=== PATIENT | male | born 1960 | race Caucasian/White ===

== ENCOUNTER 2018-07-18 20:35 | Emergency (ER) | payer OTHER ==
[~2018-07-18] VITALS: Ht 177.8 cm; Wt 144.2 kg
[2018-07-18] MEDS ORDERED: NORCO 5-325 TA1 EACH PO (20:59)
[2018-07-18] MEDS ORDERED: IBUPROFEN600 MG PO (21:00)
== END 2018-07-18 21:10 | disposition home or self-care (01) ==
LOC: ED 20:35
DX: S02.5XXA Fracture of tooth (traumatic), initial encounter for closed fracture (principal); X58.XXXA Exposure to other specified factors, initial encounter; Y93.89 Activity, other specified; Y92.89 Other specified places as the place of occurrence of the external cause; Y99.9 Unspecified external cause status

== ENCOUNTER → 2021-03-31 | Outpatient (CLI) | payer OTHER ==
[~2021-03-31] MED LIST: IBUPROFEN600 MG PO; NORCO 5-325 TA1 EACH PO
== END | disposition home or self-care (01) ==
LOC: US 10:36
PROVIDERS: ATTEND Nurse Practitioner Family
DX: I73.9 Peripheral vascular disease, unspecified (principal)

== ENCOUNTER → 2021-07-21 | Outpatient (CLI) | payer OTHER | END | disposition home or self-care (01) | LOC: US 14:00 | PROVIDERS: ATTEND Nurse Practitioner Family | DX: I82.413 Acute embolism and thrombosis of femoral vein, bilateral (principal); I82.432 Acute embolism and thrombosis of left popliteal vein ==

== ENCOUNTER 2021-11-29 13:07 | Emergency (ER) | payer OTHER ==
[2021-11-29 14:16] LABS: BASO % 0.4 % (0.0-1.0); EOS # 0.1 10*3/uL (0.0-0.4); EOS % 1.3 % (1.0-4.0); HEMATOCRIT 42.1 % (42.0-52.0); LYMPH # 1.6 10*3/uL (1.3-4.4); LYMPH % 22.4 % (27.0-41.0); MEAN CELL VOLUME 88.1 fl (80.0-94.0); MEAN CORPUSCULAR HGB 28.5 pg (27.0-31.0); MEAN CORPUSCULAR HGB CONC 32.3 g/dl (33.0-37.0); MEAN PLATELET VOLUME 9.7 fl (9.6-12.3); MONO # 0.7 10*3/uL (0.1-1.0); MONO % 9.4 % (3.0-9.0); NEUT # 4.7 10*3/uL (2.3-7.9); NEUT % 65.9 % (47.0-73.0); PLATELET COUNT AUTOMATED 220 10*3/uL (130-400); RED BLOOD COUNT 4.78 10*6/uL (4.50-5.90); RED CELL DISTRI WIDTH 16.2 % (0-14.5); WHITE BLOOD COUNT 7.1 10*3/uL (4.8-10.8)
[2021-11-29 14:31] LABS: BUN 14 mg/dl (7-24); CHLORIDE 110 mmol/L (98-107); CREATININE 0.78 mg/dL (0.70-1.30); POTASSIUM 3.9 mmol/L (3.5-5.1); SODIUM 145 mmol/L (136-145)
[2021-11-29 14:33] LABS: ACT PARTIAL THROMBO TIME 37.3 SECONDS (20.0-32.1)
== END 2021-11-29 14:47 | disposition home or self-care (01) ==
LOC: ED 13:07
PROVIDERS: Emergency Medicine
DX: I82.501 Chronic embolism and thrombosis of unspecified deep veins of right lower extremity (principal); Z91.040 Latex allergy status

== ENCOUNTER → 2024-07-10 | Outpatient (CLI) | payer OTHER | END | disposition home or self-care (01) | LOC: US 09:38 | PROVIDERS: ATTEND Urology | DX: N28.1 Cyst of kidney, acquired (principal); N50.3 Cyst of epididymis; N43.2 Other hydrocele; N20.0 Calculus of kidney; N50.819 Testicular pain, unspecified ==

== ENCOUNTER → 2024-09-02 | Outpatient (CLI) | payer OTHER ==
[2024-09-02 12:56] LABS: BASO % 0.5 % (0.0-1.0); EOS # 0.1 10*3/uL (0.0-0.4); EOS % 1.3 % (1.0-4.0); HEMATOCRIT 43.3 % (42.0-52.0); MEAN CELL VOLUME 85.9 fl (80.0-94.0); MEAN CORPUSCULAR HGB 26.4 pg (27.0-31.0); MEAN CORPUSCULAR HGB CONC 30.7 g/dl (33.0-37.0); MEAN PLATELET VOLUME 9.7 fl (9.6-12.3); MONO # 0.8 10*3/uL (0.1-1.0); MONO % 8.8 % (3.0-9.0); NEUT % 68.1 % (47.0-73.0); PLATELET COUNT AUTOMATED 244 10*3/uL (130-400); RED BLOOD COUNT 5.04 10*6/uL (4.50-5.90); RED CELL DISTRI WIDTH 17.3 % (0-14.5); WHITE BLOOD COUNT 8.7 10*3/uL (4.8-10.8)
[2024-09-02 13:17] LABS: ALKALINE PHOSPHATASE 115 U/L (46-116); BUN 13 mg/dl (9-23); CHLORIDE 102 mmol/L (98-107); POTASSIUM 3.8 mmol/L (3.4-5.1); SGPT/ALT 19 U/L (5-49); TOTAL PROTEIN 6.8 gm/dL (6.0-8.0)
== END | disposition home or self-care (01) ==
LOC: LAB 12:18
PROVIDERS: ATTEND Urology
DX: Z12.5 Encounter for screening for malignant neoplasm of prostate (principal); D40.0 Neoplasm of uncertain behavior of prostate; R53.83 Other fatigue

== ENCOUNTER → 2024-09-12 | Outpatient (CLI) | payer OTHER | END | disposition home or self-care (01) | LOC: CT 02:12 | PROVIDERS: ATTEND Internal Medicine | DX: R91.8 Other nonspecific abnormal finding of lung field (principal); J98.4 Other disorders of lung; I51.7 Cardiomegaly; I25.10 Atherosclerotic heart disease of native coronary artery without angina pectoris; R04.2 Hemoptysis ==

== ENCOUNTER → 2024-12-10 | Outpatient (CLI) | payer OTHER ==
[2024-12-10 15:32] LABS: BASO # 0.0 10*3/uL (0.0-0.1); BASO % 0.5 % (0.0-1.0); EOS # 0.2 10*3/uL (0.0-0.4); EOS % 1.7 % (1.0-4.0); MEAN CELL VOLUME 80.6 fl (80.0-94.0); MEAN CORPUSCULAR HGB 24.7 pg (27.0-31.0); MEAN PLATELET VOLUME 8.9 fl (9.6-12.3); MONO # 0.7 10*3/uL (0.1-1.0); MONO % 7.8 % (3.0-9.0); NEUT # 6.1 10*3/uL (2.3-7.9); NEUT % 69.2 % (47.0-73.0); NUCLEATED RED BLOOD CELL 0.0 % (0.0-0.0); NUCLEATED RED BLOOD CELL 0.0 10*3/uL (0.0-0.0); PLATELET COUNT AUTOMATED 217 10*3/uL (130-400); RED CELL DISTRI WIDTH 18.0 % (0-14.5)
[2024-12-10 16:13] LABS: BUN 17 mg/dl (9-23); SGPT/ALT 25 U/L (5-49)
== END | disposition home or self-care (01) ==
LOC: LAB 15:13
PROVIDERS: ATTEND Nurse Practitioner
DX: Z12.5 Encounter for screening for malignant neoplasm of prostate (principal); E79.89 Other specified disorders of purine and pyrimidine metabolism; R53.83 Other fatigue; D40.0 Neoplasm of uncertain behavior of prostate